=== PATIENT | male | born 1980 | race Caucasian/White ===

== ENCOUNTER 2021-11-06 13:23 | Emergency (ER) | payer OTHER ==
[~2021-11-06 13:23] MED LIST: ACETAMINOPHEN500 M1 PO; ALLERGY RELIEF10 MG PO; BENTYL10 MG PO; COLACE100 MG PO; ENBREL50 MG/1 ML SC; ESOMEPRAZOLE MA20 MG PO; KEFLEX250 MG PO; MOTRIN600 MG PO; NORCO 5-325 TA1 EACH PO; OXY-IR 5MG5 MG PO; PAXIL10 MG PO; PRILOSEC20 MG PO; PROBIOTIC1 EAC1 PO
[2021-11-06 14:33] LABS: BASOPHIL 0.5 % (0-2); EOSINOPHIL 3.6 % (0-5); HCT 49.1 % (42.0-52.0); HGB 16.2 g/dl (13.2-18.0); LYMPHOCYTE 12.4 % (15-48); MCH 29.1 pg (25.0-31.0); MCV 88.3 fL (78.0-100.0); MONOCYTE 7.4 % (0-12); MPV 9.9 fL (6.0-9.5); NEUTROPHIL 75.8 % (41-80); NRBC 0; PLT 204 K/uL (150-400); RBC 5.56 M/uL (4.70-6.00); RDW 13.1 % (11.5-14.0); WBC 9.8 K/uL (4.0-10.5)
[2021-11-06 14:40] LABS: ALBUMIN 3.7 g/dL (3.4-5.0); BILIRUBIN - TOTAL 0.4 mg/dL (0.2-1.0); BUN/CREAT RATIO (CALC) 9.1 RATIO; C-REACTIVE PROTEIN 1.6 mg/dL (<=0.90); CREATININE 1.1 mg/dL (0.67-1.17); GLOBULIN (CALCULATION) 3.2 g/dL; POTASSIUM 4.5 mmol/L (3.5-5.1); TOTAL PROTEIN 6.9 g/dL (6.4-8.2)
[2021-11-06 15:03] LABS: CORONAVIRUS 2019 SARS-COV-2 NEGATIVE (NEGATIVE); INFLUENZA A NAA NEGATIVE (NEGATIVE)
[2021-11-06] MEDS ORDERED: MEDROL 4MG DOSEP4 MG PO (15:58)
[2021-11-06] MEDS ORDERED: VIBRAMYCIN100 MG PO (15:58)
[2021-11-06] MEDS ORDERED: VENTOLIN HFA18 GM INH (15:58)
[2021-11-06] MEDS ORDERED: MUCINEX D TABL1 EACH PO (15:58)
== END 2021-11-06 16:24 | disposition home or self-care (01) ==
LOC: FER 13:23
PROVIDERS: Emergency Medicine
DX: J06.9 Acute upper respiratory infection, unspecified (principal); I10 Essential (primary) hypertension; Z20.822 Contact with and (suspected) exposure to COVID-19; Z79.899 Other long term (current) drug therapy
CPT/HCPCS: 36415; 71250; 80053; 84145; 85025; 86140; 93005; U0002

== ENCOUNTER → 2022-01-20 | Day surgery (SDC) | payer OTHER ==
[~2022-01-20] VITALS: Ht 193 cm; Wt 115.7 kg
[~2022-01-20] MED LIST changes: +BACTRIM DS TAB1 EACH PO; +LOPRESSOR25 MG PO; +MEDROL 4MG DOSEP4 MG PO; +MOBIC7.5 MG PO; +MUCINEX D TABL1 EACH PO; +VENTOLIN HFA18 GM INH; +VIBRAMYCIN100 MG PO
== END | disposition home or self-care (01) ==
LOC: FAS 09:00
DX: D17.22 Benign lipomatous neoplasm of skin and subcutaneous tissue of left arm (principal); D17.1 Benign lipomatous neoplasm of skin and subcutaneous tissue of trunk; D17.21 Benign lipomatous neoplasm of skin and subcutaneous tissue of right arm; I10 Essential (primary) hypertension; F17.200 Nicotine dependence, unspecified, uncomplicated; Z90.49 Acquired absence of other specified parts of digestive tract
CPT/HCPCS: J0690; J1100; J1885; J2250; J2405; J2704; J3010; J7120